=== PATIENT | male | born 1975 ===

== ENCOUNTER 2016-08-14 05:33 | Emergency (ER) | payer OTHER ==
[2016-08-14 06:34] VITALS: TEMP 98.3
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
--- NOTE | 2016-08-14 08:00 | RAD ---
PROCEDURE: Cervical Spine Radiographs. HISTORY: Pain. COMPARISON: None. FINDINGS: BONES: Alignment maintained. No fracture. Dens Intact. DISC SPACES: Normal. SOFT TISSUES: Normal. No prevertebral soft tissue swelling. OTHER FINDINGS: None. IMPRESSION: Normal cervical spine radiographs
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
[2016-08-14 10:10] VITALS: BP 107/79; PULSE 62; RESP 16; O2SAT 96
== END 2016-08-14 10:17 | disposition home or self-care (01) ==
LOC: C.ER 05:33
DX: S39.012A Strain of muscle, fascia and tendon of lower back, initial encounter (principal); S16.1XXA Strain of muscle, fascia and tendon at neck level, initial encounter; V43.52XA Car driver injured in collision with other type car in traffic accident, initial encounter; Y92.481 Parking lot as the place of occurrence of the external cause